=== PATIENT | female | born 1985 | race Caucasian/White ===

== ENCOUNTER 2017-10-27 07:43 | Day surgery (SDC) | payer OTHER ==
[~2017-10-27 07:43] MED LIST: BUPIVACAINE 0.25% PF 30 ML VIAL ONE; LIDOCAINE 1%-EPI 1:100000 30 ML MDV ONE; LIDOCAINE-MPF 2% 5 ML VIAL IM ONE; MIDAZOLAM 2 MG/2 ML VIAL IVP ONE; PROPOFOL 200 MG/20 ML VIAL IVP ONE; fentaNYL 100 MCG/2 ML VIAL IVP ONE
[2017-10-27 08:29] LABS: HCG UR QUAL NEGATIVE
[2017-10-27] MEDS ORDERED: LACTATED RINGERS 1,000 ML IV ONE ×2 (08:32→08:47)
[2017-10-27] MEDS ORDERED: LIDOCAINE 1%-EPI 1:100000 20 ML MDV SUBQ ONE ×2 (08:46)
[2017-10-27] MEDS ORDERED: BUPIVACAINE 0.25% PF 30 ML VIAL SUBQ ONE ×2 (08:46)
--- NOTE | 2017-10-27 09:34 | ANESTHESIA ---
Pre-Anesthesia VS, & Labs - Diagnosis Carpal Tunnel syndrome - Procedure carpal tunnel release Vital Signs: Temp Pulse Resp BP Pulse Ox 36.4 C L 16 100/55 L 100 10/27/17 08:02 10/27/17 08:02 10/27/17 08:02 10/27/17 08:02 Height 5 ft 2 in Weight (kg) 70.5 kg - NPO >8 hours - Is Patient ?: No Home Medications and Allergies Home Medications: Ambulatory Orders Medication Instructions Recorded Confirmed Ibuprofen [Motrin] 600 mg PO Q6H PRN 10/27/17 10/27/17 Allergies/Adverse Reactions: Allergies Allergy/AdvReac Type Severity Reaction Status Date / Time No Known Drug Allergies Allergy Verified 10/27/17 08:30 Anes History & Medical History - Anesthetic History Anesthesia Complications: reports: No previous complications - Medical History Cardiovascular: reports: None Pulmonary: reports: None Gastrointestinal: reports: None Urinary: reports: None Neuro: reports: None Musculoskeletal: reports: None Endocrine/Autoimmune: reports: None Skin: reports: None Smoking Status: Never smoker Exam General: Alert Dental: WNL Mouth Openin Fingerbreadth Neck Mobility: Normal Mallampati classification: II Respiratory: Lungs clear Cardiovascular: Regular rate Mental/Cognitive Status: Alert/Oriented X3 Plan Anesthesia Type: MAC Consent for Procedure(s) Verified and Reviewed: Yes Code Status: Attempt Resuscitation ASA classification: 1-Healthy patient Is this case an emergency?: No
[2017-10-27 10:50] VITALS: BP 93/54
--- NOTE | 2017-10-27 11:53 | OPERATIVE REPORT ---
DATE OF SERVICE: 10/27/2017 Physician: Ricardo Carpenter MD PREOPERATIVE DIAGNOSIS: Right carpal tunnel syndrome. POSTOPERATIVE DIAGNOSIS: Right carpal tunnel syndrome. NAME OF PROCEDURE: Right carpal tunnel release. OPERATING SURGEON: Ricardo Carpenter MD ANESTHESIA: MAC, local. INDICATIONS FOR SURGERY: Patient is a 32-year-old female who has symptoms of carpal tunnel syndrome with suggestive nerve conduction tests, and chronic numbness and pain in her hand, who desires carpal tunnel release. DESCRIPTION OF OPERATIVE PROCEDURE: The patient was taken to the operating room. She was given a MA C anesthetic and then a carpal tunnel block utilizing a combination of 1% lidocaine and 0.25% Marcain e with epinephrine, total volume used 8 mL. The infiltration occurred in the carpal tunnel, as well as in the palmar skin overlying the carpal tunnel. After an adequate period of time and a surgical t imeout and surgical prep and drape, the surgical approach was marked with a pen and an incision made in the palm, 1/2 inches in length, in line with the radial border of the ring finger. This incision was taken through skin and subcutaneous tissue down to the transverse carpal ligament fibers which we re divided longitudinally in line with the skin incision. Ultimately, that release extended from the distal flexion crease of the wrist to the superficial arch with adequate and sufficient decompressio n achieved. The contents of the tunnel appeared unremarkable. The area was flushed and irrigated. There was minimal bleeding. Closure was with interrupted 4-0 nylon in the skin. Sterile dressings w ere applied. The patient was then taken to the recovery room in stable condition. ESTIMATED BLOOD LOSS: Minimal. COMPLICATIONS: None. COUNTS: Sponge and needle counts were correct. TD: 10/27/2017 10:59
== END 2017-10-27 07:44 | disposition home or self-care (01) ==
LOC: SDS 07:43
PROVIDERS: ATTEND Orthopaedic Surgery
PROC: 01N50ZZ Release Median Nerve, Open Approach (ICD-10-PCS; principal; 2017-10-27 09:28)
DX: G56.01 Carpal tunnel syndrome, right upper limb (principal)
CPT/HCPCS: 64721; 81025; J7120